=== PATIENT | male | born 1975 | race Caucasian/White ===

== ENCOUNTER → 2016-10-01 | Outpatient (CLI) | payer OTHER ==
--- NOTE | 2016-10-01 13:03 | KCIC ---
Indication: Low back pain and right hip pain, fall. Time of exam 12:24 PM 5 views of the lumbar spine were obtained. Curvature is normal. Minimal retrolisthesis is identified at L5-S1. There are questionable pars defects noted at L5-S1 on the oblique views. Significant degenerative disc disease is identified at the L2-3 level, with complete loss of the disc space. There is endplate sclerosis and osteophyte formation as well as vacuum disc phenomena. There appears to be some mild anterior wedging involving the T12 and L1 vertebral bodies, likely chronic. No acute compression fracture is identified. IMPRESSION: Chronic changes, as described. No acute abnormality is detected. Electronically signed by: Jacinto Wasserman MD (10/01/2016 12:59 PM)
--- NOTE | 2016-10-01 13:04 | KCIC ---
EXAM: Pelvis and right hip, 2 views. HISTORY: Pain. COMPARISON: None. FINDINGS: A frontal view of the pelvis and frog-leg view of the right hip are obtained. There is no fracture, dislocation or subluxation. The femoral heads are normal in configuration and seated appropriately. IMPRESSION: No acute osseous finding. Electronically signed by: Rubi Cunha MD (10/01/2016 1:01 PM)
--- NOTE | 2016-10-01 13:07 | KCIC ---
Indication: Bilateral knee pain, fall. Time of exam 12:38 PM Standing AP view of bilateral knees was performed. There is an intramedullary candy within the proximal left tibia. There is severe medial compartmental degenerative change on the left and moderate medial compartmental degenerative change on the right with joint space narrowing and marginal spurring. Milder lateral compartmental degenerative changes are seen bilaterally. A benign soft tissue calcific density is identified in the suprapatellar region on the left. IMPRESSION: Chronic changes. No acute bony abnormality is detected. Electronically signed by: Jacinto Wasserman MD (10/01/2016 1:04 PM)
== END | disposition home or self-care (01) ==
LOC: KCIC 11:40
PROVIDERS: ATTEND Physical Medicine & Rehabilitation
DX: M51.37 Other intervertebral disc degeneration, lumbosacral region (principal); M25.551 Pain in right hip; M25.562 Pain in left knee; M25.561 Pain in right knee; V89.2XXD Person injured in unspecified motor-vehicle accident, traffic, subsequent encounter; Z91.81 History of falling
CPT/HCPCS: 72110; 72170; 73501; 73565